=== PATIENT | female | born 1990 | race Caucasian/White ===

== ENCOUNTER 2017-06-09 14:57 | Emergency (ER) | payer MEDICAID ==
[~2017-06-09] VITALS: Ht 162.6 cm; Wt 65.8 kg
[2017-06-09 15:30] VITALS: BP 132/77
[2017-06-09] MEDS ORDERED: OFLOXACIN5 ML BOTH EARS (15:37)
[2017-06-09] MEDS ORDERED: AUGMENTIN 875-1 EAC1 ORAL (15:37)
[2017-06-09 15:48] VITALS: BP 132/77
--- NOTE | 2017-06-09 17:17 | Emergency Room Report ---
History of Present Illness General Chief Complaint: Earache Source: Patient Present Illness HPI 27-year-old female presents to ED complaining of lateral year pain and itchiness for several months now. Was seen at another Dr. several months ago for this and was prescribed ear drops. States she used it but states his symptoms persisted. Was supposed to see ENT as followup but could not get referral because of her insurance. Patient states she continued pain and itchiness. Pain is 8/10, throbbing, nonradiating. Denies any discharge. Denies any fevers or chills. Denies any change in hearing. No other aggravating relieving factors. Denies any other associated symptoms Allergies: Coded Allergies: No Known Allergies (Unverified , 06/09/17) Patient History Past Medical History: none Past Surgical History: none Pertinent Family History: none Social History: Denies: smoking, alcohol use, drug use Last Menstrual Period: 05/10/17 Now: No Immunizations: UTD Reviewed Nursing Documentation: PMH: Agreed, PSxH: Agreed Nursing Documentation-PMH Past Medical History: No Stated History Review of Systems All Other Systems: negative except mentioned in HPI Physical Exam Vital Signs Date Time Temp Pulse Resp B/P (MAP) Pulse Ox O2 Delivery O2 Flow Rate FiO2 06/09/17 15:06 98.2 78 16 131/83 100 Room Air Sp02 EP Interpretation: reviewed, normal General Appearance: no apparent distress, alert, GCS 15, non-toxic Head: normocephalic, atraumatic Eyes: bilateral eye normal inspection, bilateral eye PERRL ENT: hearing grossly normal, normal pharynx, no angioedema, normal voice, other - bilateral ear canal with structual changes. no TM identified Neck: full range of motion, supple/symm/no masses Respiratory: chest non-tender, lungs clear, normal breath sounds, speaking full sentences Cardiovascular #1: regular rate, rhythm, no edema Cardiovascular #2: 2+ carotid (R), 2+ carotid (L), 2+ radial (R), 2+ radial (L) , 2+ dorsalis pedis (R), 2+ dorsalis pedis (L) Gastrointestinal: normal bowel sounds, non tender, soft, non-distended, no guarding, no rebound Rectal: deferred Genitourinary: normal inspection, no CVA tenderness Musculoskeletal: back normal, gait/station normal, normal range of motion, non- tender Neurologic: alert, oriented x3, responsive, motor strength/tone normal, sensory intact, speech normal Psychiatric: judgement/insight normal, memory normal, mood/affect normal, no suicidal/homicidal ideation Reflexes: 3+ bicep (R), 3+ bicep (L), 3+ tricep (R), 3+ tricep (L), 3+ knee (R) , 3+ knee (L) Skin: normal color, no rash, warm/dry, well hydrated Lymphatic: no adenopathy Medical Decision Making Diagnostic Impression: Primary Impression: Otitis externa Qualified Codes: H60.63 - Unspecified chronic otitis externa, bilateral ER Course Hospital Course 27-year-old F presents to ED with pain bilateral ear for months Differential diagnoses include: TM perforation, otitis externa, otitis media Clinical course Patient placed on stretcher. After initial history, physical exam reveals a female in no acute distress. Bilateral ear canal shows marked swelling, no TM identifiable. Consistent with chronic otitis externa Patient already failed outpatient therapy with antibiotic drops. However patient does not know what she was prescribed. I am unable to find a prescription in external meds history. Will prescribe ofloxacin otic, however given the chronic history we will also prescribe Augmentin and he recommended patient see an ENT as outpatient Diagnosis - otitis externa Stable and discharged to home with Rx ofloxacin otic, augmentin. Followup with PMD/ENT. Return to ED if symptoms recur or worsen Last Vital Signs Date Time Temp Pulse Resp B/P (MAP) Pulse Ox O2 Delivery O2 Flow Rate FiO2 06/09/17 15:48 75 20 132/77 100 Room Air 06/09/17 15:30 98.3 Status: improved Disposition: HOME, SELF-CARE Condition: Stable Scripts Amoxicillin/Potassium Clav 875-125* (AUGMENTIN 875-125 TABLET*) 1 Each Tablet 1 TAB ORAL TWICE A DAY, #14 TAB Prov: HODAN ALLRED M.D. 06/09/17 Ofloxacin (OFLOXACIN) 5 Ml Drops 10 DROP BOTH EARS BID for 14 Days, ML Prov: HODAN ALLRED M.D. 06/09/17 Referrals: [facility],REFERRING (PCP) Patient Instructions: Otitis Externa, [id number] HODAN ALLRED M.D. Jun 09, 2017 17:17
== END 2017-06-09 15:48 | disposition home or self-care (01) ==
LOC: EMR 15:30
DX: H60.93 Unspecified otitis externa, bilateral (principal)
CPT/HCPCS: 99283